=== PATIENT | female | born 1970 | race Caucasian/White ===

== ENCOUNTER → 2016-08-24 | Outpatient (CLI) | payer BC ==
[~2016-08-24] MED LIST: ATOR10TA66 PO; HYDR-3729 PO; IBUP-1773 PO; MULT-301 PO; TELM1TAB2 PO
--- NOTE | 2016-08-24 17:03 | Diagnostic Imaging Report ---
EXAMINATION: Bilateral digital screening mammogram with CAD. The current study was also evaluated with a Computer Aided Detection (CAD) system. INDICATION: Screening. No current complaints stated on the questionnaire. COMPARISON: 08/04/15. FINDINGS: The breasts are composed of heterogenously dense parenchyma which may decrease mammographic sensitivity. Occasional benign-appearing calcifications are seen. There is an oval 6 mm asymmetry along the lateral aspect of the left breast with probable correlate on the MLO view below the nipple line. Asymmetry in the medial aspect of the right breast is less prominent on the exaggerated lateral CC view and not demonstrated on the MLO view, similar to prior exam. This was previously investigated with no underlying abnormality seen. IMPRESSION: 6 mm oval focal asymmetry in the central lateral inferior aspect of the left breast. Focal compression view and ultrasound evaluation recommended. ACR BI-RADS Category 0: Incomplete. (Needs additional imaging evaluation). Result letter will be mailed to the patient. Note: At least 10% of breast cancer is not imaged by mammography. Dictated by: Dictated on workstation # [id number]
== END ==
LOC: RAD 13:09
PROVIDERS: ATTEND Obstetrics & Gynecology
DX: Z12.31 Encounter for screening mammogram for malignant neoplasm of breast (principal)
CPT/HCPCS: 77067

== ENCOUNTER → 2018-09-17 | Outpatient (CLI) | payer BC ==
--- NOTE | 2018-09-17 10:10 | Diagnostic Imaging Report ---
INDICATION: Screening. TECHNIQUE: The current study was also evaluated with a Computer Aided Detection (CAD) system. 3D tomosynthesis was also performed and reviewed. COMPARISON: 08/24/2016 and 07/26/2015. FINDINGS: The fibroglandular tissue is heterogeneously dense bilaterally. There are a few benign type calcifications. There is no new dominant mass, spiculated lesion, or suspicious calcification identified. The skin, nipples, and axillae are unremarkable. IMPRESSION: Benign findings as above. ACR BI-RADS Category 2: Benign findings. Result letter will be mailed to the patient. Note: At least 10% of breast cancer is not imaged by mammography. Dictated by: Dictated on workstation # [id number]
== END ==
LOC: RAD 08:28
PROVIDERS: ATTEND Family Medicine
DX: Z12.31 Encounter for screening mammogram for malignant neoplasm of breast (principal)
CPT/HCPCS: 77067

== ENCOUNTER → 2020-12-15 | Outpatient (CLI) | payer BC ==
--- NOTE | 2020-12-15 13:51 | Diagnostic Imaging Report ---
INDICATION: Routine screening. COMPARISON: 09/17/2018 and 08/24/2016. TECHNIQUE: 2D and 3D bilateral screening mammography was performed with CAD. FINDINGS: Both breasts are heterogeneously dense, limiting the sensitivity of mammography. There is a fibronodular parenchymal pattern which appears similar to the prior exam. No new mass or malignant appearing microcalcifications are seen. The axillae are unremarkable. IMPRESSION: No mammographic features suspicious for malignancy are identified. ACR BI-RADS Category 2: Benign findings. Result letter will be mailed to the patient. Note: At least 10% of breast cancer is not imaged by mammography. Dictated by: Dictated on workstation # [id number]
== END ==
LOC: RAD 09:30
PROVIDERS: ATTEND Family Medicine
DX: Z12.31 Encounter for screening mammogram for malignant neoplasm of breast (principal)
CPT/HCPCS: 77063; 77067

== ENCOUNTER → 2022-12-21 | Outpatient (CLI) | payer BC ==
--- NOTE | 2022-12-21 14:55 | Diagnostic Imaging Report ---
INDICATION: Routine screening. Comparison is made with prior mammogram 12/15/2020 and 09/17/2018. 2-D and 3-D bilateral screening mammography was performed with CAD. CAD is utilized. The current study was also evaluated with a Computer Aided Detection (CAD) system. Both breasts are heterogeneously dense, limiting the sensitivity of mammography. Benign-appearing nodular densities in both breasts appears stable. No spiculated mass or malignant-appearing microcalcifications are seen. Axillae are unremarkable. IMPRESSION: BI-RADS Category 2 No mammographic features suspicious for malignancy are identified. ACR BI-RADS Category 2: Benign findings. Result letter will be mailed to the patient. Note: At least 10% of breast cancer is not imaged by mammography. Dictated by: Dictated on workstation # [id number]
== END ==
LOC: RAD 10:15
PROVIDERS: ATTEND Family Medicine
DX: Z12.31 Encounter for screening mammogram for malignant neoplasm of breast (principal)
CPT/HCPCS: 77063; 77067

== ENCOUNTER 2023-06-08 09:31 | Emergency (ER) | payer BC ==
[~2023-06-08] VITALS: Ht 170 cm; Wt 89.3 kg
--- NOTE | 2023-06-08 09:54 | ED Chest Pain ---
General Chief Complaint: Chest Wall Stated Complaint: SIDE ABD PAIN/LT CALF PAIN/RECENT SURGERY Nursing Triage Note: PT AMB TO [facility] 7 FROM [facility] WITH C/O R RIB PAIN AFTER WAKING UP THIS MORNING, WORSENS WITH DEEP BERATH AND L CALF PAIN AFTER [employer] ARCHITECT PALPATED CALF AT [facility]. PT DENIES PAIN IN CALF WHEN WALKING. 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 She developed right lower pleuritic chest pain and left calf pain after traveling to and from [place] yesterday. Left ankle is also a little swollen. Today at school she developed hypertension and tachycardia. She went to [facility] and was referred to the ER. She is on oral hormone replacement after having a hysterectomy 1 month ago. Allergies and Home Medications Allergies Coded Allergies: No Known Drug Allergies (Unverified , 08/04/15) Patient Home Medication List Home Medication List Reviewed: Yes Atorvastatin Calcium (Atorvastatin Calcium) 10 Mg Tablet, 10 MG PO DAILY, (Reported) Entered as Reported by: MY RODRIGUEZ on 08/04/15 09 Hydrocodone/Acetaminophen (Lortab 5-325 mg Tablet) 1 Each Tablet, 1 EACH PO Q4H Prescribed by: EVERETT TROTTER on 08/09/15 1233 Ibuprofen (Ibuprofen) 600 Mg Tablet, 600 MG PO Q6H PRN for PAIN Prescribed by: EVERETT TROTTER on 08/09/15 1233 Multivitamin (Multi-Day Vitamins) 1 Each Tablet, 1 EACH PO DAILY, (Reported) Entered as Reported by: MY RODRIGUEZ on 08/04/15 0924 Telmisartan/Hydrochlorothiazid (Micardis Hct 40-12.5 mg Tablet) 1 Each Tablet, 1 EACH PO DAILY, (Reported) Entered as Reported by: MY RODRIGUEZ on 08/04/15 0924 Review of Systems Review of Systems Constitutional: no symptoms reported EENTM: No Symptoms Reported Respiratory: See HPI Cardiovascular: See HPI Gastrointestinal: No Symptoms Reported Genitourinary: No Symptoms Reported Musculoskeletal: no symptoms reported Skin: no symptoms reported Psychiatric/Neurological: No Symptoms Reported Endocrine: No Symptoms Reported Hematologic/Lymphatic: No Symptoms Reported Past Cgflntt-Fuzxhu-Jayfzo Hx Patient Social History Tobacco Use?: No Use of E-Cig and/or Vaping dev: No Substance use?: No Alcohol Use?: No Pt feels they are or have been: No Immunizations Up To Date Influenza Vaccine Up-to-Date: No; Not Current Past Medical History Surgery/Hospitalization HX: TOTAL HYST, D&C, HTN, HLD Surgeries: Yes (Uterine ablasion, D&C) Hysterectomy Respiratory: No Cardiac: Yes High Cholesterol, Hypertension Neurological: No : No Reproductive Disorders: Yes (HRT after hysterectomy) Female Reproductive Disorders: Menstrual Problems, Ovarian Cyst Sexually Transmitted Disease: No HIV/AIDS: No Gastrointestinal: No Musculoskeletal: No Endocrine: No HEENT: No Loss of Vision: Bilateral Hearing Impairment: Denies Cancer: No Psychosocial: No Integumentary: No Adverse Reaction/Blood Tranf: No Physical Exam Vital Signs Vital Signs - First Documented 06/08/23 09:38 Temp 37.0 Pulse 81 Resp 19 B/P (MAP) 143/96 (112) Pulse Ox 97 O2 Delivery Room Air Capillary Refill : Height, Weight, BMI Height: 5'8.00" Weight: 172lbs. oz. 78.284480cg; 30.00 BMI Method: General Appearance: No Apparent Distress, WD/WN HEENT: Normal ENT Inspection Neck: Normal Inspection; No JVD Respiratory: Lungs Clear, Normal Breath Sounds, No Accessory Muscle Use Cardiovascular: Regular Rate, Rhythm, No Edema, No Murmur Gastrointestinal: Normal Bowel Sounds, Non Tender, Soft; No Distended Extremity: Normal Inspection, Calf Tenderness (left medial calf) Neurologic/Psychiatric: Alert, Oriented x3, No Motor/Sensory Deficits, Normal Mood/Affect Skin: Normal Color, Warm/Dry Progress/Results/Core Measures Results/Orders Lab Results Laboratory Tests Test 06/08/23 09:45 Range/Units White Blood Count 9.6 4.3-11.0 10^3/uL Red Blood Count 4.60 3.80-5.11 10^6/uL Hemoglobin 15.2 11.5-16.0 g/dL Hematocrit 45 35-52 % Mean Corpuscular Volume 98 80-99 fL Mean Corpuscular Hemoglobin 33 25-34 pg Mean Corpuscular Hemoglobin Concent 34 32-36 g/dL Red Cell Distribution Width 12.4 10.0-14.5 % Platelet Count 249 130-400 10^3/uL Mean Platelet Volume 9.7 9.0-12.2 fL Immature Granulocyte % (Auto) 0 % Neutrophils (%) (Auto) 76 H 42-75 % Lymphocytes (%) (Auto) 18 12-44 % Monocytes (%) (Auto) 5 0-12 % Eosinophils (%) (Auto) 1 0-10 % Basophils (%) (Auto) 1 0-10 % Neutrophils # (Auto) 7.3 1.8-7.8 10^3/uL Lymphocytes # (Auto) 1.7 1.0-4.0 10^3/uL Monocytes # (Auto) 0.4 0.0-1.0 10^3/uL Eosinophils # (Auto) 0.1 0.0-0.3 10^3/uL Basophils # (Auto) 0.1 0.0-0.1 10^3/uL Immature Granulocyte # (Auto) 0.0 0.0-0.1 10^3/uL D-Dimer 0.52 H 0.00-0.49 UG/ML Sodium Level 141 135-145 MMOL/L Potassium Level 3.6 3.6-5.0 MMOL/L Chloride Level 106 98-107 MMOL/L Carbon Dioxide Level 24 21-32 MMOL/L Anion Gap 11 5-14 MMOL/L Blood Urea Nitrogen 11 7-18 MG/DL Creatinine 0.81 0.60-1.30 MG/DL Estimat Glomerular Filtration Rate 87 BUN/Creatinine Ratio 14 Glucose Level 105 70-105 MG/DL Calcium Level 9.5 8.5-10.1 MG/DL My Orders Orders - MINO MOY MD Basic Metabolic Panel (06/08/23 10:02) Cbc And Automated Diff (06/08/23 10:02) Fibrin Degradation Products (06/08/23 10:02) Ed Iv/Invasive Line Start (06/08/23 10:02) Ct Angio Chest W (R/O Pe) (06/08/23 10:38) Iohexol Injection (Omnipaque 350 Mg/Ml 1 (06/08/23 10:45) Received Contrast (Hold Metformin- Contr (06/08/23 10:45) Ns (Ivpb) 100 Ml (Sodium Chloride 0.9% 1 (06/08/23 10:45) Us Venous Lower Ext Lt (06/08/23 12:07) Medications Given in ED Vital Signs/I&O 06/08/23 06/08/23 09:38 12:51 Temp 37.0 37.0 Pulse 81 81 Resp 19 19 B/P (MAP) 143/96 (112) 143/96 Pulse Ox 97 97 O2 Delivery Room Air Room Air Blood Pressure Mean: 112 Progress Progress Note : Progress Note Burke was interviewed and examined. Risk factors for DVT/PE noted. Basic labs including BMP and CBC were interpreted as unremarkable by me. D-Dimer was scantly elevated. PE/DVT could not be ruled out. Risks and benefits of CTA reviewed. Through shared decision making CTA was obtained. No PE, pneumonia, pneumothorax or other pathology was identified. CTA was followed by LLE Doppler which was negative for DVT. She was given reassurance about the results. Diagnostic Imaging Diagonstic Imaging: CT Plain Films/CT/US/NM/MRI: chest Comments NAME: BURKE YOST [facility] REC#: [id number] PT STATUS: DEP ER : 1970 PHYSICIAN: MINO MOY MD ADMIT DATE: 06/08/23/ER Signed Date of Exam:06/08/23 CT ANGIO CHEST W (R/O PE) INDICATION: Chest pain. Elevated D-dimer. Recent surgery and travel. Left calf pain. COMPARISON: None. TECHNIQUE: Routine postcontrast CTA of the chest was performed. Contrast was injected intravenously and timed for optimal opacification of the arterial structures. Multiplanar and 3-D reformats were also created and reviewed. Auto Exposure Controls were utilized during the CT exam to meet ALARA standards for radiation dose reduction. FINDINGS: No abnormal intraluminal filling defect is seen within the pulmonary arteries to the lobar division. Evaluation beyond this is degraded by poor opacification by the contrast bolus. Thoracic aorta is normal in course and caliber. By NASCET criteria, there is no focal significant stenosis. There is no evidence of dissection or aneurysm. Heart size is within normal limits. There is no large pericardial effusion. No pathologically enlarged or morphologically abnormal adenopathy is seen within the mediastinum, hany, nor axillae. Lungs are clear. There is no focal consolidation, large effusion, nor pneumothorax. No suspicious pulmonary nodule or mass is seen. Osseous structures show no acute abnormalities. No lytic or blastic bony lesions are seen. Included portions of the upper abdomen are unremarkable as well. IMPRESSION: 1. No CT evidence of pulmonary embolus. 2. No other acute cardiopulmonary process. Dictated by: Dictated on workstation # [id number] Dict: 06/08/23 1105 Trans: 06/08/231705 [id number] Interpreted by: PRAVNI DAS MD Electronically signed by: PRAVIN DAS MD 06/08/231705 Diagonstic Imaging: Ultrasound Plain Films/CT/US/NM/MRI: leg Comments NAME: BURKE YOST [facility] REC#: [id number] PT STATUS: DEP ER : 1970 PHYSICIAN: MINO MOY MD ADMIT DATE: 06/08/23/ER Signed Date of Exam:06/08/23 US VENOUS LOWER EXT LT EXAMINATION: US Lower Extremity Venous Duplex Left. TECHNIQUE: Multiple real-time grayscale images were obtained over the left lower extremity in various projections. Additional spectral analysis and color Doppler duplex images were also obtained. HISTORY: Left leg pain and swelling. COMPARISON: None available. FINDINGS: The left common femoral vein, deep femoral vein, superficial femoral vein and popliteal vein are patent with normal bailey scale and doppler appearance. There is normal respiratory variation and augmentation. The visualized calf vessels are patent. Likely Mccoy's cyst is seen in the left knee measuring 3.6 x 1.0 cm. IMPRESSION: 1. No DVT of the left lower extremity. 2. Likely Mccoy's cyst in the left popliteal fossa. Dictated by: Dictated on workstation # [id number] Dict: 06/08/23 1335 Trans: 06/08/23 1342 [id number] Interpreted by: ANDREY SWEET DO Electronically signed by: ANDREY SWEET DO 06/08/23 1342 Departure Impression Primary Impression: Pleuritic chest pain Additional Impressions: Pain of left calf Elevated d-dimer Disposition: 01 HOME, SELF-CARE Condition: Stable Departure-Patient Inst. Decision time for Depature: 12:39 Referrals: FAVIO TEIXEIRA MD (PCP/Family) Primary Care Physician Patient Instructions: Pleuritic Chest Pain ED Add. Discharge Instructions: Your evaluation for blood clots was negative. There was no pulmonary embolus seen on the CT scan of your chest. No blood clots were seen in the ultrasound of your leg. You may use ibuprofen up to 600 mg every 6 hours as needed to treat your pain. You may add Tylenol (acetaminophen) up to 1000 mg every 6 hours as needed for additional pain relief. Follow-up with your primary care provider if your symptoms are not improving with this treatment. Return to the ER if you have worsening symptoms or develop new symptoms despite following these instructions. All discharge instructions reviewed with patient and/or family. Voiced u nderstanding. Copy Copies To 1: FAVIO TEIXEIRA MD, JOSHUA T MD Jun 08, 2023 09:54
[2023-06-08 10:08] LABS: BASOPHILS # (AUTO) 0.1 10^3/uL (0.0-0.1); BASOPHILS % (AUTO) 1 % (0-10); EOSINOPHILS # (AUTO) 0.1 10^3/uL (0.0-0.3); EOSINOPHILS % (AUTO) 1 % (0-10); HEMATOCRIT 45 % (35-52); HEMOGLOBIN 15.2 g/dL (11.5-16.0); LYMPHOCYTES # (AUTO) 1.7 10^3/uL (1.0-4.0); LYMPHOCYTES % (AUTO) 18 % (12-44); MEAN CORPUSCULAR HEMOGLOBIN 33 pg (25-34); MEAN CORPUSCULAR HGB CONC 34 g/dL (32-36); MEAN CORPUSCULAR VOLUME 98 fL (80-99); MEAN PLATELET VOLUME 9.7 fL (9.0-12.2); MONOCYTES # (AUTO) 0.4 10^3/uL (0.0-1.0); MONOCYTES % (AUTO) 5 % (0-12); NEUTROPHILS # (AUTO) 7.3 10^3/uL (1.8-7.8); NEUTROPHILS % (AUTO) 76 % (42-75); PLATELET COUNT 249 10^3/uL (130-400); WHITE BLOOD COUNT 9.6 10^3/uL (4.3-11.0)
[2023-06-08 10:12] LABS: POTASSIUM 3.6 MMOL/L (3.6-5.0)
[2023-06-08 10:13] LABS: CALCIUM 9.5 MG/DL (8.5-10.1)
[2023-06-08 10:17] LABS: CREATININE SERUM 0.81 MG/DL (0.60-1.30)
[2023-06-08] MEDS ORDERED: IOHEXOL 350 MG/ML 100 ML (OMNIPAQUE 350) VIAL IV ONE (10:45)
[2023-06-08] MEDS ORDERED: HOLD METFORMIN - RECEIVED CONTRAST 20 ML VIAL IV SCH (10:45)
[2023-06-08] MEDS ORDERED: NS 100 ML (IVPB) BAG IV ONE (10:45)
--- NOTE | 2023-06-08 11:31 | Diagnostic Imaging Report ---
INDICATION: Chest pain. Elevated D-dimer. Recent surgery and travel. Left calf pain. COMPARISON: None. TECHNIQUE: Routine postcontrast CTA of the chest was performed. Contrast was injected intravenously and timed for optimal opacification of the arterial structures. Multiplanar and 3-D reformats were also created and reviewed. Auto Exposure Controls were utilized during the CT exam to meet ALARA standards for radiation dose reduction. FINDINGS: No abnormal intraluminal filling defect is seen within the pulmonary arteries to the lobar division. Evaluation beyond this is degraded by poor opacification by the contrast bolus. Thoracic aorta is normal in course and caliber. By NASCET criteria, there is no focal significant stenosis. There is no evidence of dissection or aneurysm. Heart size is within normal limits. There is no large pericardial effusion. No pathologically enlarged or morphologically abnormal adenopathy is seen within the mediastinum, hany, nor axillae. Lungs are clear. There is no focal consolidation, large effusion, nor pneumothorax. No suspicious pulmonary nodule or mass is seen. Osseous structures show no acute abnormalities. No lytic or blastic bony lesions are seen. Included portions of the upper abdomen are unremarkable as well. IMPRESSION: 1. No CT evidence of pulmonary embolus. 2. No other acute cardiopulmonary process. Dictated by: Dictated on workstation # [id number]
[2023-06-08 12:51] VITALS: BP 143/96
--- NOTE | 2023-06-08 13:42 | Diagnostic Imaging Report ---
EXAMINATION: US Lower Extremity Venous Duplex Left. TECHNIQUE: Multiple real-time grayscale images were obtained over the left lower extremity in various projections. Additional spectral analysis and color Doppler duplex images were also obtained. HISTORY: Left leg pain and swelling. COMPARISON: None available. FINDINGS: The left common femoral vein, deep femoral vein, superficial femoral vein and popliteal vein are patent with normal bailey scale and doppler appearance. There is normal respiratory variation and augmentation. The visualized calf vessels are patent. Likely Mccoy's cyst is seen in the left knee measuring 3.6 x 1.0 cm. IMPRESSION: 1. No DVT of the left lower extremity. 2. Likely Mccoy's cyst in the left popliteal fossa. Dictated by: Dictated on workstation # [id number]
== END 2023-06-08 12:54 | disposition home or self-care (01) ==
LOC: EDUNIT# 09:31 → ER 09:34
DX: R07.81 Pleurodynia (principal); M79.662 Pain in left lower leg; R79.89 Other specified abnormal findings of blood chemistry
CPT/HCPCS: 36415; 71275; 80048; 85025; 85379